=== PATIENT | male | born 1965 | race Caucasian/White ===

== ENCOUNTER 2016-09-18 06:45 | Emergency (ER) | payer MEDICAID ==
[~2016-09-18] VITALS: Ht 172.7 cm; Wt 88.5 kg
[~2016-09-18 06:45] MED LIST: [UNRECOGNIZED DRUG - OTHER]
[2016-09-18 07:08] VITALS: BP 131/80
--- NOTE | 2016-09-18 07:16 | NUR ---
Patient ambulated to bed 07.
--- NOTE | 2016-09-18 07:19 | NUR ---
Jose Luis byrd in [facility] - 09/18/16 at [address] Garcia evaluating patient at bedside.
--- NOTE | 2016-09-18 07:31 | NUR ---
Dr. Garcia evaluating patient at bedside.
[2016-09-18] MEDS ORDERED: NACL 0.9% 1,000 ML IV ONE (07:35)
[2016-09-18] MEDS ORDERED: KETOROLAC 30 MG/ML VIAL IVP ONE (07:35)
[2016-09-18] MEDS ORDERED: ONDANSETRON 4 MG/2 ML VIAL IVP ONE (07:35)
--- NOTE | 2016-09-18 07:35 | NUR ---
PATIENT PRESENTS TO ED WITH LEFT FLANK PAIN AND SORE THROAT. PT HAS HX OF LOWER BACK PAIN, AND TAKES MEDICATIONS FOR PAIN. DENIES N/V/D; SKIN IS PINK/WARM/DRY; AAOX4 WITH EVEN AND STEADY GAIT; LUNGS CLEAR BL; HR EVEN AND REGULAR; PT DENIES ANY FEVER, CP, SOB, OR COUGH AT THIS TIME; PATIENT STATES PAIN OF 8/10 AT THIS TIME; VSS; PATIENT POSITIONED FOR COMFORT; HOB ELEVATED; BEDRAILS UP X2; BED DOWN. ER MD MADE AWARE OF PT STATUS.
--- NOTE | 2016-09-18 07:53 | NUR ---
IV STARTED ON RIGHT AC #20, NO S/S OF ACUTE DISTRESS. PATIENT TAKEN TO CT.
--- NOTE | 2016-09-18 07:54 | NUR ---
Patient to CT via wheelchair per tech
--- NOTE | 2016-09-18 08:03 | NUR ---
Patient back from CT via wheelchair per tech.
[2016-09-18] MEDS ORDERED: cefTRIAXone 1,000 MG VIAL ONE (08:45)
[2016-09-18] MEDS ORDERED: MORPHINE SULFATE 4 MG/ML SYR IVP ONE (08:55)
[2016-09-18 10:31] VITALS: BP 131/80
--- NOTE | 2016-09-18 10:31 | NUR ---
Patient discharged with v/s stable. Written and verbal after care instructions given and explained. Patient alert, oriented and verbalized understanding of instructions. Ambulatory with steady gait. All questions addressed prior to discharge. ID band removed. Patient advised to follow up with PMD. Rx of NORCO, KEFLEX given. Patient educated on indication of medication including possible reaction and side effects. Opportunity to ask questions provided and answered.
== END 2016-09-18 10:31 | disposition home or self-care (01) ==
LOC: MED 06:45
DX: N10 Acute pyelonephritis (principal)
CPT/HCPCS: 36415; 74176; 80053; 81001; 82150; 83605; 83690; 85025; 85610; 85730; 87040; 87086; 96361; 96365; 96375; 99285; J0696; J1885; J2270; J2405; J7060